=== PATIENT | female | born 1990 | race Caucasian/White ===

== ENCOUNTER 2018-12-27 13:01 | Emergency (ER) | payer OTHER ==
[~2018-12-27] VITALS: Ht 160 cm; Wt 68.0 kg
[2018-12-27 13:30] LABS: *BILIRUBIN,URIN NEGATIVE (NEGATIVE); *BLOOD, URINE 2+ (NEGATIVE); *CLARITY,URINE SLIGHTLY CLOUDY (CLEAR); *COLOR,URINE YELLOW (YELLOW); *KETONES,URINE NEGATIVE (NEGATIVE); *UROBILINOGEN,URINE 0.2 E.U./dl (NORMAL); LEUKOCYTE ESTERASE ,URINE 1+ (NEGATIVE); NITRITE, URINE NEGATIVE (NEGATIVE); UGLUCOSE NEGATIVE (NEGATIVE)
[2018-12-27 13:32] LABS: *URINE HCG, QUAL NEGATIVE (NEGATIVE)
[2018-12-27 13:37] LABS: BACTERIA,URINE FEW /HPF (NONE SEEN); RBC,URINE 0-3 /HPF (0-3); SQUAMOUS EPITHELIAL CELL,UR FEW /HPF (NONE SEEN)
[2018-12-27] MEDS ORDERED: CEFTRIAXONE 500 MG VIAL ONE (13:43)
[2018-12-27] MEDS ORDERED: LIDOCAINE HCL 2% 20 ML VIAL ONE (13:44)
[2018-12-27] MEDS ORDERED: CEFTRIAXONE 500 MG VIAL IM ONE (13:45)
--- NOTE | 2018-12-27 13:50 | NUR ---
PT WAS EVALUATED BY DR HANKS. PT WAS D/C'D TO HOME. D/C INSTRUCTIONS GIVEN TO THE PT.
[2018-12-27 13:51] VITALS: BP 128/77
== END 2018-12-27 14:07 | disposition home or self-care (01) ==
LOC: ER 13:05
DX: N71.9 Inflammatory disease of uterus, unspecified (principal)
CPT/HCPCS: 81000; 81001; 84703; 87077; 87086; 87186; 96372; 99283; J0696; J3490